=== PATIENT | female | born 1955 | race Caucasian/White ===

== ENCOUNTER 2018-11-22 11:23 | Outpatient (CLI) | payer BC | END 2018-11-22 11:24 | disposition home or self-care (01) | LOC: LAB.S 11:23 | PROVIDERS: ATTEND Nurse Practitioner Women's Health | DX: C56.1 Malignant neoplasm of right ovary (principal) | CPT/HCPCS: 36415; 81599; 86304; 86305 ==

== ENCOUNTER 2019-04-25 12:19 | Outpatient (CLI) | payer BC | END 2019-04-25 23:59 | disposition home or self-care (01) | LOC: LAB.S 12:19 | PROVIDERS: ATTEND Nurse Practitioner Women's Health | DX: C56.1 Malignant neoplasm of right ovary (principal) | CPT/HCPCS: 36415; 81599; 86304; 86305 ==

== ENCOUNTER 2019-11-11 09:08 | Outpatient (CLI) | payer OTHER ==
--- NOTE | 2019-11-14 11:47 | Mammography Report ---
BILATERAL DIGITAL SCREENING MAMMOGRAM 3D/2D: 11/11/2019 Comparison is made to exams dated: 01/12/2018 mammogram, 01/10/2017 mammogram, 12/25/2015 mammogram, 07/05/2015 mammogram, 06/18/2015 mammogram, and 11/03/2012 mammogram - [facility]. There a re scattered fibroglandular elements in both breasts. No significant masses, calcifications, or other findings are seen in either breast. There has been no significant interval change. IMPRESSION: NEGATIVE There is no mammographic evidence of malignancy. A 1 year screening mammogram is recommended. This exam was interpreted at Station ID: [id number]. NOTE: For mammograms, a report in lay terms will be sent to the patient. Approximately 15% of breast malignancies will not be visualized mammographically. In the management of a palpable breast mass, a negative mammogram must not discourage biopsy of a clinically suspicious lesion. Electronically Signed By: Angel arriaga/janki:11/11/2019 11:11:43 ACR BI-RADS Category 1: Negative 3341F PARENCHYMAL PATTERN: (A) - The breast(s) demonstrate(s) scattered fibroglandular densities. BI-RADS CATEGORY: (1) - 1 RECOMMENDATION: (ANNUAL) - Recommend routine annual screening mammography. [id number] 1 year screening LATERALITY: (B)
== END 2019-11-11 09:09 | disposition home or self-care (01) ==
LOC: DI 09:08
PROVIDERS: ATTEND Registered Nurse
DX: Z12.31 Encounter for screening mammogram for malignant neoplasm of breast (principal)
CPT/HCPCS: 77063; 77067

== ENCOUNTER 2019-11-11 09:10 | Outpatient (CLI) | payer OTHER ==
--- NOTE | 2019-11-11 12:16 | DEXA Report ---
PROCEDURE: Dexa Spine and/or Hip INDICATIONS: POST MENOPAUSAL TECHNIQUE: Dual energy x-ray absorptiometry (DXA) was performed on a Pressgl[employer] System. Regions measur ed are the AP Spine, femoral neck, and if needed forearm. COMPARISON: None. FINDINGS: Lumbar Spine: Bone Mineral Density 1.208 g/cm/cm,T score 0.2, normal Left Hip: Bone Mineral Density 1.139 g/cm/cm,T score 1.0, normal Left Femoral Neck: Bone Mineral Density 1.007 g/cm/cm, T score -0.2, normal (T score greater or equal to -1.0: NORMAL) (T score from -1.1 to -2.4: OSTEOPENIA) (T score less than or equal to -2.5 to: OSTEOPOROSIS) Impression: Normal bone mineral density over the lumbosacral spine, left hip region and left femoral neck. Patients with diagnosis of osteoporosis or osteopenia should have regular bone mineral density assess ment. For those eligible for Medicare, routine testing is allowed once every 2 years. Testing frequ ency can be increased for patients who have rapidly progressing disease or for those who are receivin g medical therapy to restore bone mass. Reviewed by: Rolando Browne MD on 11/11/2019 12:15 PM PDT Approved by: Rolando Browne MD on 11/11/2019 12:15 PM PDT Station ID: [id number]
== END 2019-11-11 09:11 | disposition home or self-care (01) ==
LOC: DI 09:10
PROVIDERS: ATTEND Registered Nurse
DX: Z78.0 Asymptomatic menopausal state (principal)
CPT/HCPCS: 77080

== ENCOUNTER 2019-11-22 11:37 | Outpatient (CLI) | payer OTHER | END 2019-11-22 11:38 | disposition home or self-care (01) | LOC: LAB.S 11:37 | PROVIDERS: ATTEND Obstetrics & Gynecology Gynecologic Oncology | DX: Z85.43 Personal history of malignant neoplasm of ovary (principal) | CPT/HCPCS: 36415; 81599; 86304; 86305 ==

== ENCOUNTER 2020-05-22 15:40 | Outpatient (CLI) | payer OTHER | END 2020-05-22 15:41 | disposition home or self-care (01) | LOC: LAB.S 15:40 | PROVIDERS: ATTEND Obstetrics & Gynecology Gynecologic Oncology | DX: Z85.43 Personal history of malignant neoplasm of ovary (principal) | CPT/HCPCS: 36415; 81599; 86304; 86305 ==

== ENCOUNTER 2020-08-29 11:51 | Outpatient (CLI) | payer OTHER | END 2020-08-29 11:52 | disposition home or self-care (01) | LOC: LAB.S 11:51 | PROVIDERS: ATTEND Physician Assistant Medical | DX: C56.9 Malignant neoplasm of unspecified ovary (principal) | CPT/HCPCS: 36415; 86304 ==

== ENCOUNTER 2020-11-20 11:38 | Outpatient (CLI) | payer OTHER | END 2020-11-20 11:39 | disposition home or self-care (01) | LOC: LAB.S 11:38 | PROVIDERS: ATTEND Obstetrics & Gynecology Gynecologic Oncology | DX: Z85.43 Personal history of malignant neoplasm of ovary (principal) | CPT/HCPCS: 36415; 81599; 86304; 86305 ==

== ENCOUNTER 2021-02-26 12:43 | Outpatient (CLI) | payer OTHER | END 2021-02-26 12:44 | disposition home or self-care (01) | LOC: LAB.S 12:43 | PROVIDERS: ATTEND Obstetrics & Gynecology Gynecologic Oncology | DX: Z85.43 Personal history of malignant neoplasm of ovary (principal) | CPT/HCPCS: 36415; 86304 ==

== ENCOUNTER 2021-05-23 09:22 | Outpatient (CLI) | payer OTHER | END 2021-05-23 09:23 | disposition home or self-care (01) | LOC: LAB.S 09:22 | PROVIDERS: ATTEND Nurse Practitioner Women's Health | DX: Z85.43 Personal history of malignant neoplasm of ovary (principal) | CPT/HCPCS: 36415; 81599; 86304; 86305 ==

== ENCOUNTER 2022-03-18 17:37 | Outpatient (CLI) | payer OTHER | END 2022-03-18 17:38 | disposition critical access hospital (66) | LOC: EMS 17:37 | DX: R07.89 Other chest pain (principal); I10 Essential (primary) hypertension | CPT/HCPCS: A0425; A0429 ==

== ENCOUNTER 2022-03-18 18:11 | Emergency (ER) | payer OTHER ==
[2022-03-18 18:35] LABS: BASOPHILS # (AUTO) 0.1 10^3/uL (0.0-0.1); BASOPHILS % (AUTO) 0.9 %; EOSINOPHILS # (AUTO) 0.2 10^3/uL (0.0-0.7); EOSINOPHILS % (AUTO) 3.3 %; HCT - HEMATOCRIT 40.8 % (37.0-47.0); HGB - HEMOGLOBIN 13.1 g/dL (12.0-16.0); LYMPHOCYTES # (AUTO) 2.2 10^3/uL (1.5-3.5); LYMPHOCYTES % (AUTO) 30.9 %; MEAN CORPUSCULAR HEMOGLOBIN 30.7 pg (27.0-31.0); MEAN CORPUSCULAR HGB CONC 32.1 g/dL (32.0-36.0); MEAN CORPUSCULAR VOLUME 95.6 fL (81.0-99.0); MEAN PLATELET VOLUME 9.4 fL (7.9-10.8); MONOCYTES # (AUTO) 0.7 10^3/uL (0.0-1.0); MONOCYTES % (AUTO) 9.3 %; NEUTROPHILS # (AUTO) 3.9 10^3/uL (1.5-6.6); NEUTROPHILS % (AUTO) 55.3 %; PLT - PLATELET COUNT 336 10^3/uL (130-450); RED BLOOD COUNT 4.27 10^6/uL (4.20-5.40); RED CELL DISTRIBUTION WIDTH 14.8 % (12.0-15.0)
--- NOTE | 2022-03-18 18:40 | ED Physician Documentation ---
PD HPI CHEST PAIN - Stated complaint Stated Complaint: CP - Chief complaint Chief Complaint: Cardiac - History obtained from History obtained from: Patient - Additional information Additional information: 66-year-old woman with no history of heart disease presents with a pinching pain starting at 230 during light activity this afternoon. It has subsequently gone away. She did exert herself physically while it was happening with no change in the pain. There is no associated diaphoresis or shortness of breath. She was in pain for approximately 2 hours. No recent leg pain or leg swelling. No cough, hemoptysis, or radiation of the pain. PD PAST MEDICAL HISTORY - Allergies Allergies/Adverse Reactions: Allergies Allergy/AdvReac Type Severity Reaction Status Date / Time No Known Drug Allergies Allergy Verified 03/18/22 18:18 PD ED PE NORMAL - Vitals Vital signs reviewed: Yes - General General: Alert and oriented X 3, No acute distress - HEENT HEENT: PERRL, EOMI - Neck Neck: Supple, no meningeal sign, No bony TTP - Cardiac Cardiac: RRR, No murmur - Respiratory Respiratory: No respiratory distress, Clear bilaterally - Abdomen Abdomen: Non tender - Back Back: No CVA TTP, No spinal TTP - Derm Derm: Normal color, Warm and dry - Extremities Extremities: No edema, No calf tenderness / cord - Neuro Neuro: Alert and oriented X 3 Results - Vitals Vitals: Vital Signs - 24 hr 03/18/22 03/18/22 03/18/22 18:18 18:48 19:03 Temperature 36.5 C Heart Rate 82 72 71 Respiratory 16 16 12 Rate Blood Pressure 177/110 H 168/100 H 156/99 H O2 Saturation 99 100 98 03/18/22 03/18/22 19:16 19:36 Temperature Heart Rate 70 Respiratory 15 18 Rate Blood Pressure 164/100 H O2 Saturation 100 Oxygen O2 Source Room air - EKG (time done) 1813 Rate: Rate (enter#) (74) Rhythm: NSR (w pvc) [place]: Normal Intervals: Normal [place] QRS: LVH Ischemia: Non specific changes. No: ST elevation c/w ischemia, ST depression Compare to prior EKG: Old EKG unavailable Computer interpretation: Agree with computer - Labs Labs: Laboratory Tests 03/18/22 03/18/22 03/18/22 18:19 18:19 18:19 WBC 7.0 RBC 4.27 Hgb 13.1 Hct 40.8 MCV 95.6 MCH 30.7 MCHC 32.1 RDW 14.8 Plt Count 336 MPV 9.4 Neut # (Auto) 3.9 Lymph # (Auto) 2.2 [place] # (Auto) 0.7 Eos # (Auto) 0.2 Baso # (Auto) 0.1 Absolute Nucleated RBC 0.00 Nucleated RBC % 0.0 Sodium 141 Potassium 3.6 Chloride 102 Carbon Dioxide 29 Anion Gap 10.0 BUN 24 H Creatinine 0.8 Estimated GFR (MDRD) 72 L Glucose 96 Calcium 9.4 Total Bilirubin 0.4 AST 23 ALT 21 Alkaline Phosphatase 78 Troponin I High Sens 5.4 Total Protein 7.6 Albumin 4.2 Globulin 3.4 Albumin/Globulin Ratio 1.2 Lipase 36 - Rads (name of study) 1v cxr Radiology: Final report received, EMP read indepedently PD Medical Decision Making - ED course ED course: Heart score 2. PE considered, but without shortness of breath, tachycardia, hypoxemia, leg symptoms this is very unlikely. No radiation to the back and fleeting pain would suggest against dissection especially with normal chest x- ray. She has a remote history of paroxysmal atrial fibrillation and she feels this was consistent with that. Baby aspirin advised pending follow-up. Departure - Departure Disposition: 01 Home, Self Care Clinical Impression: Chest pain Qualifiers: Chest pain type: unspecified Qualified Code(s): R07.9 - Chest pain, unspecified Condition: Good Record reviewed to determine appropriate education?: Yes Instructions: ED Chest Pain NonCardiac Comments: You were seen today for chest pain, thankfully there was no clear evidence of serious cause between EKG, blood work, and chest x-ray. Follow-up with your primary care physician, next available appointment, consider follow-up stress testing and/or prolonged cardiac monitoring. Take a baby aspirin a day until advised not to do so. Return if you have recurrent pain.
[2022-03-18 18:45] LABS: ALBUMIN 4.2 g/dL (3.2-5.5); ALBUMIN/GLOBULIN RATIO 1.2 (1.0-2.2); BILIRUBIN,TOTAL 0.4 mg/dL (0.2-1.0); CALCIUM 9.4 mg/dL (8.5-10.3); CREATININE 0.8 mg/dL (0.4-1.0); POTASSIUM 3.6 mmol/L (3.5-5.0); TOTAL PROTEIN 7.6 g/dL (6.7-8.2)
--- OUTSIDE RECORDS SUMMARY | 2022-03-18 18:51 | EXTERNAL MEDICAL SUMMARY RPT | Continuity of Care Document ---
:1955 Author Organization [facility] Address [address] [place] [address] Phone Care Team Providers Name Role Phone Unavailable Unavailable Unavailable Stu Berrios, Anamaria Unavailable Unavailable Radha Herman, Chava Unavailable Unavailable Christian Herman, Suki Unavailable Unavailable Aroldo Taveras, Katelyn Unavailable Unavailable Gurwinder, Provider Unavailable Unavailable Allergies and Intolerances date description facility type (no date) AMOXICILLIN [facility] [place] Encounters No information. Functional Status No information. Immunizations No information. Medications date description facility 2022-02-06 00:00 fluticasone propionate [facility] 2022-02-06 00:00 fluticasone propionate [facility] 2022-02-10 00:00 fluticasone propionate [facility] 2022-03-18 00:00 fluticasone propionate [facility] [place] 2022-03-18 00:00 fluticasone propionate [facility] [place] 2022-02-06 00:00 fluticasone propionate [facility] [place] 2022-02-06 00:00 fluticasone propionate [facility] [place] 2022-02-10 00:00 fluticasone propionate [facility] [place] 2022-03-18 00:00 fluticasone propionate [facility] [place] 2022-03-18 00:00 fluticasone propionate [facility] [place] 2022-02-06 00:00 fluticasone propionate [facility] [place] 2022-02-06 00:00 fluticasone propionate [facility] [place] 2022-02-10 00:00 fluticasone propionate [facility] [place] 2022-03-18 00:00 fluticasone propionate [facility] [place] 2022-03-18 00:00 fluticasone propionate [facility] [place] 2022-02-06 00:00 fluticasone propionate [facility] [place] 2022-02-06 00:00 fluticasone propionate [facility] [place] 2022-02-10 00:00 fluticasone propionate [facility] [place] 2022-03-18 00:00 fluticasone propionate [facility] [place] 2022-03-18 00:00 fluticasone propionate [facility] [place] 2022-02-06 00:00 albuterol sulfate [facility] [place] 2022-02-06 00:00 albuterol sulfate [facility] [place] 2022-02-06 00:00 albuterol sulfate [facility] [place] 2022-02-06 00:00 albuterol sulfate [facility] [place] 2022-02-06 00:00 albuterol sulfate [facility] [place] 2022-02-06 00:00 albuterol sulfate [facility] [place] 2022-02-06 00:00 albuterol sulfate [facility] [place] 2022-02-06 00:00 albuterol sulfate [facility] [place] 2022-02-06 00:00 albuterol sulfate [facility] [place] 2022-02-06 00:00 albuterol sulfate [facility] [place] 2022-02-06 00:00 albuterol sulfate [facility] [place] 2022-02-06 00:00 albuterol sulfate [facility] [place] 2022-02-06 00:00 albuterol sulfate [facility] [place] 2022-02-06 00:00 albuterol sulfate [facility] [place] 2022-02-06 00:00 albuterol sulfate [facility] [place] 2022-02-06 00:00 albuterol sulfate [facility] [place] 2022-02-06 00:00 albuterol sulfate [facility] [place] 2022-02-06 00:00 albuterol sulfate [facility] [place] 2022-02-06 00:00 albuterol sulfate [facility] [place] 2022-02-06 00:00 albuterol sulfate [facility] [place] 2022-03-18 00:00 cholecalciferol (vitamin d3 [facility] [place] 2022-03-18 00:00 cholecalciferol (vitamin d3 [facility] [place] 2022-03-18 00:00 cetirizine [facility] [place] 2022-03-18 00:00 cetirizine [facility] [place] Problems date description facility 2022-02-06 00:00 Other specified viral infection [facility] [place] 2022-02-06 00:00 Other specified viral infection [facility] [place] 2022-02-06 00:00 Other specified viral infection [facility] [place] 2022-02-06 00:00 Other specified viral infection [facility] [place] 2022-02-06 00:00 Other specified viral infection [facility] [place] 2022-02-06 00:00 COVID-19 [facility] [place] 2022-02-06 00:00 COVID-19 [facility] [place] 2022-02-06 00:00 COVID-19 [facility] [place] 2022-02-06 00:00 COVID-19 [facility] [place] 2022-02-06 00:00 COVID-19 [facility] [place] 2022-03-18 00:00 Acute chest pain [facility] [place] 2022-03-18 00:00 Acute chest pain [facility] [place] 2022-03-18 00:00 Unspecified chest pain [facility] [place] 2022-03-18 00:00 Unspecified chest pain [facility] [place] 2022-03-18 00:00 Other chest pain [facility] [place] 2022-03-18 00:00 Other chest pain [facility] [place] Procedures date description facility 2022-02-06 00:00 Visit Code Hold [facility] [place] 2022-02-06 00:00 Visit Code Hold [facility] [place] 2022-02-06 00:00 Visit Code Hold [facility] [place] 2022-02-06 00:00 Visit Code Hold [facility] [place] 2022-02-06 00:00 Visit Code Hold [facility] [place] 2022-03-18 00:00 Visit Code Hold [facility] [place] 2022-03-18 00:00 Visit Code Hold [facility] [place] 2022-03-18 00:00 EKG Office Complete [facility] [place] 2022-03-18 00:00 EKG Office Complete [facility] [place] Results/Labs No information. Social History date description facility 2022-02-06 00:00 Never smoker [facility] [place] 2022-02-06 00:00 Never smoker [facility] [place] 2022-02-06 00:00 Never smoker [facility] [place] 2022-02-06 00:00 Never smoker [facility] [place] 2022-02-06 00:00 Never smoker [facility] [place] 2022-03-18 00:00 Never smoker [facility] [place] 2022-03-18 00:00 Never smoker [facility] [place] Vital Signs date measurement value units 2022-02-06 00:00 BMI 28.02 kg/m2 2022-02-06 00:00 BP_diastolic 106 mmHg 2022-02-06 00:00 BP_systolic 160 mmHg 2022-02-06 00:00 heart_rate 105 /min 2022-02-06 00:00 height_metric 167.64 cm 2022-02-06 00:00 height_standard 66 in 2022-02-06 00:00 respiration_rate 16 /min 2022-02-06 00:00 temperature_metric 36.11 C 2022-02-06 00:00 temperature_standard 97 F 2022-02-06 00:00 weight_metric 78.47 kg 2022-02-06 00:00 weight_standard 173 lb 2022-03-18 00:00 BMI 28.19 kg/m2 2022-03-18 00:00 BP_diastolic 90 mmHg 2022-03-18 00:00 BP_systolic 160 mmHg 2022-03-18 00:00 heart_rate 72 /min 2022-03-18 00:00 height_metric 167.64 cm 2022-03-18 00:00 height_standard 66 in 2022-03-18 00:00 respiration_rate 18 /min 2022-03-18 00:00 temperature_metric 36.78 C 2022-03-18 00:00 temperature_standard 98.2 F 2022-03-18 00:00 weight_metric 78.93 kg 2022-03-18 00:00 weight_standard 174 lb
--- NOTE | 2022-03-18 19:15 | XRAY Report ---
PROCEDURE: Chest 1 View X-Ray INDICATIONS: Chest pain TECHNIQUE: One view of the chest was acquired. COMPARISON: None. FINDINGS: Surgical changes and devices: None. Lungs and pleura: No pleural effusions or pneumothorax. Lungs are clear. Mediastinum: Mediastinal contours appear normal. Heart size is normal. Bones and chest wall: No suspicious bony lesions. Overlying soft tissues appear unremarkable. IMPRESSION: No acute pulmonary process. Reviewed by: Rosalind Cote MD on 03/18/2022 7:14 PM PST Approved by: Rosalind Cote MD on 03/18/2022 7:14 PM [facility] Station ID: [id number]
[2022-03-18 19:37] VITALS: BP 164/100
== END 2022-03-18 19:50 | disposition home or self-care (01) ==
LOC: EDUNIT# → ED 18:11
DX: R07.9 Chest pain, unspecified (principal)
CPT/HCPCS: 36415; 80053; 83690; 84484; 85025; 93005; 99283; 99284

== ENCOUNTER 2022-06-09 11:20 | Outpatient (CLI) | payer OTHER ==
--- NOTE | 2022-06-09 16:57 | XRAY Report ---
PROCEDURE: Chest 2 View X-Ray INDICATIONS: ABNORMAL PULMONARY FINDINGS TECHNIQUE: 2 views of the chest were acquired. COMPARISON: Chest x-ray dated 03/18/2022 FINDINGS: Surgical changes and devices: None. Lungs and pleura: No pleural effusions or pneumothorax. Lungs are clear. Mediastinum: Mediastinal contours appear normal. Heart size is normal. Bones and chest wall: No suspicious bony lesions. Overlying soft tissues appear unremarkable. IMPRESSION: No acute process. Reviewed by: Wilfredo Reagan MD on 06/09/2022 4:56 PM PDT Approved by: Wilfredo Reagan MD on 06/09/2022 4:56 PM PDT Station ID: [id number]
== END 2022-06-09 11:21 | disposition home or self-care (01) ==
LOC: DI.S 11:20
PROVIDERS: ATTEND Internal Medicine Cardiovascular Disease
DX: R09.89 Other specified symptoms and signs involving the circulatory and respiratory systems (principal); C56.9 Malignant neoplasm of unspecified ovary
CPT/HCPCS: 36415; 86304; 86305

== ENCOUNTER 2022-07-16 14:57 | Outpatient (CLI) | payer MEDICARE, BC ==
[2022-07-16 20:06] LABS: CALCIUM 9.7 mg/dL (8.5-10.3); CREATININE 0.8 mg/dL (0.4-1.0); POTASSIUM 4.4 mmol/L (3.5-5.0)
== END 2022-07-16 14:58 | disposition home or self-care (01) ==
LOC: LAB.S 14:57
PROVIDERS: ATTEND Internal Medicine Cardiovascular Disease
DX: I10 Essential (primary) hypertension (principal)
CPT/HCPCS: 36415; 80048

== ENCOUNTER 2022-08-20 10:58 | Outpatient (CLI) | payer MEDICARE, BC ==
--- NOTE | 2022-08-21 09:25 | Mammography Report ---
BILATERAL DIGITAL SCREENING MAMMOGRAM 3D/2D WITH EXAGGERATED CC: 08/20/2022 CLINICAL: Routine screening. Comparison is made to exams dated: 11/11/2019 mammogram - [facility], 01/12/2018 md mmogram, and 01/10/2017 mammogram - [facility]. There are scattered areas of fibroglandular density in both breasts (category b / 25%-50% glandular t issue). There is a benign focal asymmetry in the right breast. No significant masses, calcifications, or other findings are seen in either breast. There has been no significant interval change. IMPRESSION: BENIGN There is no mammographic evidence of malignancy. A 1 year screening mammogram is recommended. Based on the Tyrer Cuzick model (a risk assessment model) the patients lifetime risk is 7.8% and her 10 year risk is 3.7%. According to the ACR, ACS, and NCCN guidelines, an annual breast MRI exam dina g with mammogram is recommended if the patients lifetime risk is 20% or greater. This exam was interpreted at Station ID: [id number]. NOTE: For mammograms, a report in lay terms will be sent to the patient. Approximately 15% of breast malignancies will not be visualized mammographically. In the management of a palpable breast mass, a negative mammogram must not discourage biopsy of a clinically suspicious lesion. Electronically Signed By: Angel arriaga/janki:08/20/2022 12:02:40 letter sent: No_Letter ACR BI-RADS Category 2: Benign Finding(s) 3342F PARENCHYMAL PATTERN: (A) - The breast(s) demonstrate(s) scattered fibroglandular densities. BI-RADS CATEGORY: (2) - 2 Mammogram [id number] 1 year screening LATERALITY: (B)
== END 2022-08-20 10:59 | disposition home or self-care (01) ==
LOC: DI.S 10:58
PROVIDERS: ATTEND Registered Nurse
DX: Z12.31 Encounter for screening mammogram for malignant neoplasm of breast (principal)

== ENCOUNTER 2023-02-26 10:07 | Outpatient (CLI) | payer MEDICARE, BC | END 2023-02-26 10:08 | disposition home or self-care (01) | LOC: LAB.S 10:07 | PROVIDERS: ATTEND Nurse Practitioner Obstetrics & Gynecology | DX: C56.9 Malignant neoplasm of unspecified ovary (principal) | CPT/HCPCS: 36415; 86304; 86305 ==

== ENCOUNTER 2023-03-09 09:30 | Day surgery (SDC) | payer MEDICARE, BC ==
[2023-03-09] MEDS ORDERED: LACTATED RINGERS 1,000 ML IV ONE ×2 (09:55→10:56)
--- NOTE | 2023-03-09 10:18 | ANESTHESIA ---
Pre-Anesthesia VS, & Labs - Diagnosis screening - Procedure colonoscopy Height: 5 ft 5 in Weight (kg): 81.2 kg Body Mass Index: 29.7 BMI Classification: Overweight - NPO >8 hours - Is Patient ?: No Home Medications and Allergies Home Medications: Ambulatory Orders Cetirizine [ZyrTEC] 10 mg PO DAILY 03/06/23 Cholecalciferol (Vitamin D3) [Vitamin D3] 1,250 mcg PO DAILY 03/06/23 Fluticasone [Flonase] 1 spray FEMI DAILY 03/06/23 Multivitamin 1 tab ORAL DAILY 03/06/23 Tumeric/Ging/[place]/Oreg/Capryl [Candicidal Capsule] 1 tab ORAL DAILY 03/06/23 Cetirizine [ZyrTEC] 10 mg PO DAILY 03/06/23 Cholecalciferol (Vitamin D3) [Vitamin D3] 1,250 mcg PO DAILY 03/06/23 Fluticasone [Flonase] 1 spray FEMI DAILY 03/06/23 Multivitamin 1 tab ORAL DAILY 03/06/23 Tumeric/Ging/[place]/Oreg/Capryl [Candicidal Capsule] 1 tab ORAL DAILY 03/06/23 Allergies/Adverse Reactions: Allergies Allergy/AdvReac Type Severity Reaction Status Date / Time Penicillins Allergy Rash Verified 03/06/23 13:26 Anes History & Medical History - Anesthetic History Anesthesia Complications: reports: No previous complications - Medical History Cardiovascular: reports: Murmur Pulmonary: reports: Asthma Gastrointestinal: reports: None Urinary: reports: Kidney stones Musculoskeletal: reports: None Endocrine/Autoimmune: reports: None Skin: reports: None Smoking Status: Never smoker Psychosocial: reports: Alcohol (occasional) History of Cancer?: No - Surgical History General: reports: Colonoscopy Gynecologic: reports: Other Exam General: Alert Dental: WNL Mouth Opening: Greater than 4 Fingerbreadths Neck Mobility: Normal Mallampati classification: II Thyromental Distance: greater than 6 cm Respiratory: Lungs clear Cardiovascular: Regular rate, Normal S1, Normal S2, No murmurs (not heard today) Plan Anesthesia Type: Total IV Consent for Procedure(s) Verified and Reviewed: Yes Code Status: Attempt Resuscitation ASA classification: 2-Mild systemic disease Is this case an emergency?: No
[2023-03-09 11:18] VITALS: BP 111/77; O2SAT 100
[2023-03-09] MEDS ORDERED: LIDOCAINE-PF 2% 10 ML AMP SUBQ ONE (11:30)
--- NOTE | 2023-03-09 12:39 | ANESTHESIA POST OP EVALUATION ---
Anesthesia Post Eval - Post Anesthesia Eval Vitals: Last Vital Signs Temp 36.2 C L 03/09/23 11:20 Pulse 69 03/09/23 11:20 Resp 16 03/09/23 11:20 BP 111/77 03/09/23 11:20 Pulse Ox 100 03/09/23 11:20 O2 Flow Rate CV Function Including HR & BP: Stable Pain Control: Satisfactory Nausea & Vomiting: Negative Mental Status: Baseline Respiratory Status: Airway Patent Hydration Status: Satisfactory Anesthesia Complications: None
== END 2023-03-09 09:31 | disposition home or self-care (01) ==
LOC: SDS 09:30
PROVIDERS: ATTEND Surgery
DX: Z12.11 Encounter for screening for malignant neoplasm of colon (principal); I10 Essential (primary) hypertension; J45.909 Unspecified asthma, uncomplicated; Z86.010 Personal history of colon polyps
CPT/HCPCS: G0121; J7120

== ENCOUNTER 2023-07-07 10:33 | Outpatient (CLI) | payer MEDICARE, BC ==
--- NOTE | 2023-07-07 21:39 | Ultrasound Report ---
PROCEDURE: Abdomen Complete INDICATIONS: ABD PAIN TECHNIQUE: Real-time scanning was performed of the abdominal and retroperitoneal organs, with image documentatio n. COMPARISON: None. FINDINGS: Liver: Liver is normal in size and increased in echotexture. Gallbladder: No gallstones, sludge, wall thickening or pericholecystic edema. Bilateral measures 2.4 mm Biliary ducts: Intrahepatic bile ducts are non-dilated. Extrahepatic bile duct caliber measures $4. 8 million mm. Normal is 6-7 mm or less in diameter, or 10 mm or less post-cholecystectomy. Pancreas: Visualized portions of the pancreas are sonographically normal. Spleen: Spleen is normal in size and homogeneous in echotexture. Kidneys: Kidneys are normal in size and echotexture. Right kidney measures 10 point cm long; left k idney measures 11.4 cm long. No hydronephrosis or nephrolithiasis. No solid masses. No complex gaby l cystic lesions which require follow-up. Multiple simple parapelvic cysts with the largest measuring 1.7 cm on the left. Aorta: Visualized aorta is normal in caliber at less than 3 cm. Iliacs: Proximal common iliac arteries are normal in caliber at less than 2.5 cm. IVC: Intrahepatic inferior vena cava is patent. Miscellaneous: No free abdominal fluid. IMPRESSION: Hepatic steatosis. Simple parapelvic cysts. Reviewed by: Rosalind Cote MD on 07/07/2023 9:38 PM PDT Approved by: Rosalind Cote MD on 07/07/2023 9:38 PM PDT Station ID: [id number]
--- NOTE | 2023-07-07 21:40 | Ultrasound Report ---
PROCEDURE: Pelvic Complete INDICATIONS: ABD PAIN TECHNIQUE: Real-time transabdominal scanning was performed of the pelvic organs, with image documentation. COMPARISON: Ultrasound abdomen 07/07/2023 FINDINGS: Uterus: Removed. Ovaries: Removed. Adnexal regions are unremarkable. Other: No free pelvic fluid. IMPRESSION: Status post hysterectomy and bilateral oophorectomy. Adnexal regions are unremarkable. Reviewed by: Rosalind Cote MD on 07/07/2023 9:38 PM PDT Approved by: Rosalind Cote MD on 07/07/2023 9:38 PM PDT Station ID: [id number]
== END 2023-07-07 10:34 | disposition home or self-care (01) ==
LOC: DI 10:33
PROVIDERS: ATTEND Nurse Practitioner Family
DX: K76.0 Fatty (change of) liver, not elsewhere classified (principal); N94.89 Other specified conditions associated with female genital organs and menstrual cycle; R10.32 Left lower quadrant pain; Z90.710 Acquired absence of both cervix and uterus; Z90.722 Acquired absence of ovaries, bilateral